=== PATIENT | female | born 1975 ===

== ENCOUNTER 2023-01-02 08:15 | Inpatient (IN) | payer OTHER ==
[~2023-01-02] VITALS: Ht 152.4 cm; Wt 50.8 kg
[2023-01-02] MEDS ORDERED: PEPCID AC20 MG PO (10:20)
[2023-01-02] MEDS ORDERED: ACID REDUCER20 M1 PO (10:20)
[2023-01-02] MEDS ORDERED: HORIZANT600 MG PO (10:21)
== END 2023-01-09 16:38 | disposition home or self-care (01) | DRG 328 ==
LOC: SURG 01-07 08:15 → O/R 01-07 13:18 → SURG 01-07 21:01 → O/R 01-09 10:28 → SURG 01-09 10:29
PROVIDERS: ADMIT Surgery; ATTEND Surgery
PROC: 8E0W0CZ Robotic Assisted Procedure of Trunk Region, Open Approach (ICD-10-PCS; 2023-01-07)
PROC: 0D840ZZ Division of Esophagogastric Junction, Open Approach (ICD-10-PCS; principal; 2023-01-07 11:00)
DX: K22.0 Achalasia of cardia (principal)